=== PATIENT | female | born 1950 | race Caucasian/White ===

== ENCOUNTER 2016-12-05 22:32 | Emergency (ER) | payer OTHER ==
[~2016-12-05 22:32] MED LIST: ABILIFY10 PO; ACCUNE1 INH; CELEBREX2 PO; CIP5 PO; CYMBALTA30 PO; LOP50 PO; LUNESTA3 MG PO; NEUR300 PO; NEXIUM40 PO; PRILO PO; PRIN10 PO; SUCR PO; VENTOLIN HFA INH; VESICARE5 PO; ZANAFLEX 4 MG TA4 MG PO
== END 2016-12-05 23:53 | disposition home or self-care (01) ==
LOC: ER 22:32
DX: M25.511 Pain in right shoulder (principal); G89.29 Other chronic pain; I10 Essential (primary) hypertension; F17.200 Nicotine dependence, unspecified, uncomplicated; Z88.1 Allergy status to other antibiotic agents; Z88.5 Allergy status to narcotic agent; Z79.899 Other long term (current) drug therapy; Z96.611 Presence of right artificial shoulder joint
CPT/HCPCS: 99283; A9270-GY